=== PATIENT | male | born 1945 | race Native Hawaiian/Other Pacific Islander ===

== ENCOUNTER 2017-01-10 17:33 | Observation (INO) | payer OTHER ==
[~2017-01-10] VITALS: Ht 182.9 cm; Wt 110.7 kg
[~2017-01-10 17:33] MED LIST: ALBUTERO2 IN; ALPR0.2566 PO; ALPR0.5T24 PO; AMOX500C85; AMOX500C85 PO; ANORO ELLIPTA 61 AER IN; CEFTIN500 MG OR; CELEXA20 MG PO; CLOP75TA2 PO; CYCL10TA35 PO; DICY20TA34 PO; FLOXIN OT; FLUTMIS6 INH; GABA300C2 PO; LEVAQUIN750 MG OR; LIPITOR20 MG PO; LODRANE D1 CAP PO; MEDROL DOSEPAK4 MG OR; MELOXICAM7.5 MG OR; METO25TA4 PO; OMEPRAZOLE40 MG PO; ORAPRED ODT10 MG OR; PRED10TA27 PO; PRIM50TA4 PO; ROPINIROLE0.25 MG PO; SINGULAIR10 MG PO; WELLBUTRIN75 MG PO; ZANTAC300 MG PO; ZESTRIL40 MG PO
[2017-01-10 17:40] VITALS: BP 132/80; TEMP 99.3
[2017-01-10] MEDS ORDERED: ASPIRIN 81 LOW81 MG PO (17:55)
[2017-01-10] MEDS ORDERED: NITR0.4S2 SL (17:56)
[2017-01-10] MEDS ORDERED: LIPITOR20 MG PO (17:57)
[2017-01-10] MEDS ORDERED: CYCL10TA35 PO (17:58)
[2017-01-10 18:51] LABS: PLATELET COUNT 187 K/uL (142-355)
[2017-01-10 19:01] LABS: POTASSIUM 3.9 mmol/L (3.6-5.2)
[2017-01-11 00:17] VITALS: BP 126/72; TEMP 98.4
[2017-01-11 01:33] VITALS: BP 126/72; TEMP 98.6; Ht 182.9 cm; Wt 110.7 kg
[2017-01-11 04:00] VITALS: BP 110/70; TEMP 98.2
[2017-01-11 07:51] VITALS: BP 102/66; TEMP 98.3
--- NOTE | 2017-01-11 10:30 | NUR ---
DR. MAYO HERE TO VISIT WITH NEW ORDER. Pt. TO HAVE SURGERY TODAY.
[2017-01-11 11:31] LABS: PLATELET COUNT 163 K/uL (142-355)
[2017-01-11 11:50] LABS: POTASSIUM 3.5 mmol/L (3.6-5.2)
--- NOTE | 2017-01-11 11:57 | NUR ---
OLEG BACON REQUEST TO GET RECORDS FROM DR. DUNN DUE TO RESENT STENT PLACEMENT. FAXED REQUEST.
[2017-01-11 12:00] VITALS: BP 121/62; TEMP 98.1
--- NOTE | 2017-01-11 13:20 | NUR ---
RECEIVED ORDERS TO TRANSFER Pt. TO [facility] FOR SERVICES DR. VIDAL CUEVAS.
--- NOTE | 2017-01-11 15:17 | NUR ---
CLARIBEL CALLED WITH ROOM ASSIGNMENT 406 AND NUMBER TO CALL REPORT.
--- NOTE | 2017-01-11 15:41 | NUR ---
CALLED REPORT TO LAURA FABIAN RN.
[2017-01-11 16:00] VITALS: BP 139/89; TEMP 99.4
--- NOTE | 2017-01-11 17:30 | NUR ---
[facility] IS HERE. Pt. EXIT VIA STRETCHER.
== END 2017-01-11 17:30 | disposition home or self-care (01) ==
LOC: ED 17:33 → MED/SURG 22:15
PROVIDERS: Student in an Organized Health Care Education/Training Program
DX: R10.84 Generalized abdominal pain (principal); K21.9 Gastro-esophageal reflux disease without esophagitis; J44.9 Chronic obstructive pulmonary disease, unspecified; K81.9 Cholecystitis, unspecified; R22.2 Localized swelling, mass and lump, trunk
CPT/HCPCS: 80053; 82150; 83605; 83690; 85027; 96361; 96365; 96366; 96375; 99220; 99284; G0378; J1170; J1885; J2543; J3490; Q9963

== ENCOUNTER 2017-07-17 10:26 | Observation (INO) | payer OTHER ==
[2017-07-17] VITALS (7 sets, daily range): BP systolic 129–172; BP diastolic 86–112; TEMP 98.1–98.6; Ht 182.9 cm; Wt 107.0 kg
[~2017-07-17] VITALS: Ht 182.9 cm; Wt 107.0 kg
[~2017-07-17 10:26] MED LIST changes: +ASPIRIN 81 LOW81 MG PO; +NITR0.4S2 SL
[2017-07-17 10:57] LABS: PLATELET COUNT 227 K/uL (142-355)
[2017-07-17 11:06] LABS: POTASSIUM 4.6 mmol/L (3.6-5.2); SODIUM 138 mmol/L (136-145)
[2017-07-17 11:23] LABS: PARTIAL THROMBOPLASTIN TIME 25.4 SECONDS (24.5-33.6)
[2017-07-17] MEDS ORDERED: CELEXA20 MG PO (16:52)
[2017-07-17] MEDS ORDERED: XANAX XR1 MG PO (16:53)
[2017-07-17] MEDS ORDERED: XANAX XR2 MG PO (16:59)
[2017-07-18] VITALS: BP 113/71; TEMP 97.9
[2017-07-18 02:11] LABS: PLATELET COUNT 216 K/uL (142-355)
[2017-07-18 02:55] LABS: POTASSIUM 3.8 mmol/L (3.6-5.2); SODIUM 136 mmol/L (136-145)
[2017-07-18 04:00] VITALS: BP 103/57; TEMP 98.3
[2017-07-18 08:00] VITALS: BP 143/87; TEMP 98.5
== END 2017-07-18 12:08 | disposition home or self-care (01) ==
LOC: ED 10:26 → MED/SURG 13:20
PROVIDERS: ADMIT Emergency Medicine
DX: R07.89 Other chest pain (principal); I10 Essential (primary) hypertension; I25.10 Atherosclerotic heart disease of native coronary artery without angina pectoris; J44.9 Chronic obstructive pulmonary disease, unspecified
CPT/HCPCS: 36415; 80053; 82550; 83735; 84484; 85027; 85379; 85610; 85730; 93005; 94760; 96374; 99220; 99284; G0378; J2270

== ENCOUNTER 2018-01-20 09:00 | Outpatient (CLI) | payer OTHER ==
[~2018-01-20 09:00] MED LIST changes: +XANAX XR1 MG PO; +XANAX XR2 MG PO
[2018-01-20 09:35] LABS: POTASSIUM 3.7 mmol/L (3.6-5.2)
== END 2018-01-20 21:43 | disposition home or self-care (01) ==
LOC: LABW 09:00
PROVIDERS: Internal Medicine Cardiovascular Disease
DX: E78.4 Other hyperlipidemia (principal); Z79.899 Other long term (current) drug therapy; Z51.81 Encounter for therapeutic drug level monitoring
CPT/HCPCS: 36415; 80048; 80061; 83735

== ENCOUNTER 2018-09-24 19:38 | Emergency (ER) | payer OTHER ==
[~2018-09-24] VITALS: Ht 182.9 cm; Wt 109.8 kg
[2018-09-24 20:40] LABS: PLATELET COUNT 174 K/uL (142-355)
[2018-09-24 20:51] LABS: POTASSIUM 3.1 mmol/L (3.6-5.2)
[2018-09-24 21:54] VITALS: BP 120/87; TEMP 98.4
== END 2018-09-24 21:55 | disposition home or self-care (01) ==
LOC: ED 19:38
DX: J44.1 Chronic obstructive pulmonary disease with (acute) exacerbation (principal)
CPT/HCPCS: 36415; 36600; 80053; 81000; 82805; 85027; 94664; 96374; 99284; J2930

== ENCOUNTER 2019-07-30 16:08 | Outpatient (CLI) | payer OTHER ==
[~2019-07-30 16:08] MED LIST changes: +CELEBREX100 MG PO; +CETIRIZINE10 MG PO; +CLON0.5T36 PO; +ESCI10TA PO; +HYDR25TA60 PO; +LIPOFEN50 MG PO; +PROAIR HFA108 MCG/AC INH; +TRAMADOL HYDROC50 MG PO; +TRAZ50TA36 PO; +VITAMIN D50000 UNIT PO
== END 2019-07-30 16:10 | disposition short-term general hospital (02) ==
LOC: AMB 16:08
DX: R07.89 Other chest pain (principal)
CPT/HCPCS: A0425; A0427

== ENCOUNTER 2019-07-30 16:12 | Observation (INO) | payer OTHER ==
[2019-07-30] VITALS (10 sets, daily range): BP systolic 118–142; BP diastolic 61–88; TEMP 98.3–98.6; Ht 182.9 cm; Wt 107.6 kg
[~2019-07-30] VITALS: Ht 182.9 cm; Wt 107.6 kg
[2019-07-30 16:44] LABS: PLATELET COUNT 238 K/uL (142-355)
[2019-07-30 17:07] LABS: POTASSIUM 3.9 mmol/L (3.6-5.2); SODIUM 141 mmol/L (136-145)
[2019-07-30 17:13] LABS: PARTIAL THROMBOPLASTIN TIME 24.1 SECONDS (24.5-33.6)
--- NOTE | 2019-07-30 23:23 | NUR ---
07/30/192004: RECEIVED PT TO ROOM 1110. PT ARRIVED BY WHEELCHAIR FROM ER. PT ADMITTED WITH CHEST PAIN BUT DENIES AT THIS TIME. PT ALERT AND ORIENTED.
[2019-07-31] VITALS: BP 118/72; TEMP 97.6
[2019-07-31 04:00] VITALS: BP 103/62; TEMP 97.7
[2019-07-31 08:00] VITALS: BP 115/77; TEMP 98
--- NOTE | 2019-07-31 09:15 | NUR ---
@0915 C/O CHEST AND SHOULDER PAIN PRS=6, MEDICATED WITH MORPHINE 2MG IV @0945 @1045 DR DUNN IN TO SEE PT, ORDERS RECIEVED TO TRANSFER TO HIS CARE AT [facility] IN [place]. FAN FROM TRANSFER CENTER CALLED @1115 AND STATED SHE WOULD CALL US BACK WITH A ROOM ASSIGNMENT. @1345 FAN CALLED WITH ROOM ASSIGNMENT, FACE SHEET, H&P, LABS FAXED. @1400 PT C/O CHEST PAIN AND SHORTNESS OF BREATH WHEN RAISED HOB, AND STATED SOB LAST TIME HE GOT UP TO URINATE. PAIN PRS WAS 4 BEFORE SITTING UP, 6 AFTER SITTING UP. MEDICATED WITH MORPHINE 2MG IV @1415, VITAL SIGNS TAKEN. @1430 PAIN WAS COMPLETELY RELIEVED, NO SOB, NO DIZZINESS NOTED. @1430 CALLED REPORT TO RHONDA LOPEZ RN AT [facility]. @1435 ADÁN WEEKS FROM EMS CALLED AND STATED THAT WOULD BE HERE FOR THE PATIENT AROUND 1600. @1650 ARRIVED TO TRANSPORT PATIENT BY STRETCHER, PT HAD DUFFLE BAG WITH CLOTHING IN IT THAT WENT ALONG WITH PATIENT. @1655 PT LEFT HOSPITAL WITH , TELEMETRY WAS REMOVED, IV LEFT INTACT FOR TRAVEL
--- NOTE | 2019-07-31 10:44 | NUR ---
DR DUNN WAS REQUESTED TO CONSULT ON THIS PATIENT. PATIENT HAS A HISTORY OF CAD WITH STENT PLACEMENT. IS TRANSFERING PATIENT TO [place] FOR CONTINUED CARE AND CARDIOLOGY SERVICES. PATIENT WILL HAVE A HEART CATH, WHICH IS NOT AVAILABLE AT THIS FACILTY.
[2019-07-31 12:00] VITALS: BP 121/75; TEMP 97.9
== END 2019-07-31 18:19 | disposition short-term general hospital (02) ==
LOC: ED 16:12 → MED/SURG 19:05
PROVIDERS: ADMIT Family Medicine
DX: R07.89 Other chest pain (principal); I25.10 Atherosclerotic heart disease of native coronary artery without angina pectoris; E78.00 Pure hypercholesterolemia, unspecified; I10 Essential (primary) hypertension; F32.89 Other specified depressive episodes; Z72.0 Tobacco use; J44.9 Chronic obstructive pulmonary disease, unspecified
CPT/HCPCS: 80053; 81000; 82550; 82553; 84484; 85027; 85379; 85610; 85730; 93005; 94760; 96372; 96374; 99220; 99284; G0378; J1650; J2270; J2405

== ENCOUNTER 2019-09-16 10:25 | Inpatient (IN) | payer OTHER ==
[~2019-09-16] VITALS: Ht 182.9 cm; Wt 115.0 kg
[2019-09-16 13:27] LABS: PLATELET COUNT 208 K/uL (142-355)
[2019-09-16 13:41] LABS: POTASSIUM 3.4 mmol/L (3.6-5.2)
[2019-09-16 13:49] VITALS: BP 110/72; TEMP 98.2; Ht 182.9 cm; Wt 115.0 kg
[2019-09-16] MEDS ORDERED: ESCITALOPRAM10 MG PO (15:25)
[2019-09-16] MEDS ORDERED: CYCLOBENZAPRINE10 MG PO (15:25)
[2019-09-16] MEDS ORDERED: METOPROLOL TA37.5 MG PO (15:40)
[2019-09-16] MEDS ORDERED: NITROGLYCER0.1 MG/H1 TD (15:42)
[2019-09-16 16:00] VITALS: BP 104/62; TEMP 98
[2019-09-16] MEDS ORDERED: ASPIR-8181 MG PO (18:17)
[2019-09-16 20:00] VITALS: BP 117/75; TEMP 98.6
[2019-09-17] VITALS: BP 113/69; TEMP 98.6
[2019-09-17 04:00] VITALS: BP 115/71; TEMP 98.2
[2019-09-17 06:11] LABS: PLATELET COUNT 203 K/uL (142-355)
[2019-09-17 06:43] LABS: POTASSIUM 3.9 mmol/L (3.6-5.2)
[2019-09-17 08:00] VITALS: BP 138/73; TEMP 97.6
[2019-09-17 12:00] VITALS: BP 102/71; TEMP 98.2
[2019-09-17 16:00] VITALS: BP 94/67; TEMP 98.6
[2019-09-17 20:00] VITALS: BP 102/74; TEMP 98.6
[2019-09-18] VITALS: BP 104/63; TEMP 97.7
[2019-09-18 04:00] VITALS: BP 125/68; TEMP 97.7
[2019-09-18 08:09] VITALS: BP 108/71; TEMP 97.7
[2019-09-18 12:09] VITALS: BP 125/77; TEMP 97.6
[2019-09-18 16:17] VITALS: BP 116/78; TEMP 97.8
[2019-09-18 20:00] VITALS: BP 104/73; TEMP 98.3
[2019-09-19] VITALS: BP 97/35; TEMP 98.2
[2019-09-19 04:00] VITALS: BP 103/73; TEMP 97.7
[2019-09-19 06:09] LABS: PLATELET COUNT 197 K/uL (142-355)
[2019-09-19 08:00] VITALS: BP 125/80; TEMP 97.5
== END 2019-09-19 15:23 | disposition home or self-care (01) | DRG 191 ==
LOC: MED/SURG 10:25
PROVIDERS: Family Medicine; ADMIT Internal Medicine
DX: J44.1 Chronic obstructive pulmonary disease with (acute) exacerbation (principal); N20.1 Calculus of ureter; E87.6 Hypokalemia; I25.10 Atherosclerotic heart disease of native coronary artery without angina pectoris; E78.49 Other hyperlipidemia; R09.02 Hypoxemia; I10 Essential (primary) hypertension; F32.89 Other specified depressive episodes; E55.9 Vitamin D deficiency, unspecified; J32.8 Other chronic sinusitis
CPT/HCPCS: 36415; 36600; 80053; 82805; 82948; 85027; 94640; 94664; 94760; 96360; 96367; 96375; J0692; J1650; J1815; J2930

== ENCOUNTER 2020-06-18 13:05 | Outpatient (CLI) | payer OTHER ==
[~2020-06-18 13:05] MED LIST changes: +ASPIR-8181 MG PO; +CYCLOBENZAPRINE10 MG PO; +ESCITALOPRAM10 MG PO; +METOPROLOL TA37.5 MG PO; +NITROGLYCER0.1 MG/H1 TD
== END 2020-06-18 23:39 | disposition home or self-care (01) ==
LOC: LABW 13:05
DX: M86.8X8 Other osteomyelitis, other site (principal)
CPT/HCPCS: 36415; 85651

== ENCOUNTER 2020-08-19 10:03 | Outpatient (CLI) | payer OTHER ==
[2020-08-19 10:21] LABS: PLATELET COUNT 174 K/uL (142-355)
== END 2020-08-19 23:58 | disposition home or self-care (01) ==
LOC: LABW 10:03
PROVIDERS: ATTEND Internal Medicine Cardiovascular Disease
DX: R53.81 Other malaise (principal); R53.83 Other fatigue; R52 Pain, unspecified
CPT/HCPCS: 36415; 85027; 85651

== ENCOUNTER 2020-09-02 09:21 | Outpatient (CLI) | payer OTHER ==
[2020-09-02 09:50] LABS: POTASSIUM 4.3 mmol/L (3.6-5.2)
== END 2020-09-02 21:05 | disposition home or self-care (01) ==
LOC: LABW 09:21
PROVIDERS: ATTEND Internal Medicine Cardiovascular Disease
DX: R06.09 Other forms of dyspnea (principal); Z79.899 Other long term (current) drug therapy
CPT/HCPCS: 36415; 80048; 83880

== ENCOUNTER 2021-05-07 13:35 | Emergency (ER) | payer OTHER ==
[~2021-05-07] VITALS: Ht 182.9 cm; Wt 120.2 kg
[2021-05-07 15:06] LABS: POTASSIUM 4.4 mmol/L (3.6-5.2); SODIUM 141 mmol/L (136-145)
[2021-05-07 15:10] LABS: PLATELET COUNT 187 K/uL (142-355)
[2021-05-07 15:17] LABS: PARTIAL THROMBOPLASTIN TIME 27.4 SECONDS (24.5-33.6)
[2021-05-07 20:45] VITALS: BP 114/71; TEMP 98
== END 2021-05-07 21:45 | disposition home or self-care (01) ==
LOC: ED 13:35
PROVIDERS: Emergency Medicine
DX: U07.1 COVID-19 (principal); J44.1 Chronic obstructive pulmonary disease with (acute) exacerbation
CPT/HCPCS: 80053; 83880; 84484; 85027; 85379; 85610; 85730; 93005; 96374; 96375; 99284; J1885; J2920; Q9963

== ENCOUNTER 2021-05-16 14:57 | Inpatient (IN) | payer OTHER ==
[~2021-05-16] VITALS: Ht 182.9 cm; Wt 109.9 kg
[2021-05-16] VITALS (9 sets, daily range): BP systolic 104–147; BP diastolic 66–98; TEMP 98.2–98.9; Ht 182.9 cm; Wt 109.9 kg
[2021-05-16 15:25] LABS: PLATELET COUNT 229 K/uL (142-355)
[2021-05-16 15:31] LABS: POTASSIUM 4.1 mmol/L (3.6-5.2); SODIUM 141 mmol/L (136-145)
[2021-05-16 15:39] LABS: PARTIAL THROMBOPLASTIN TIME 24.5 SECONDS (24.5-33.6)
--- NOTE | 2021-05-16 19:18 | NUR ---
SPOKE WITH PT REGARDING INTUBATION IF NEEDED, I ASKED PT IF HIS OXYGEN GOT TO LOW WOULD HE WANT TO BE PUT ON THE VENTILATOR PT STATES "YES I DO," WHEN ASKED IF HE WOULD LIKE CPR DONE INCASE OF CARDIAC ARREST PT WAS UNABLE TO ANSWER AT THIS TIME HE SAID HE WANTED TO THINK ABOUT IT
[2021-05-17] VITALS: BP 92/59; TEMP 97.8
[2021-05-17 04:00] VITALS: BP 113/79; TEMP 98.5
[2021-05-17 08:00] VITALS: BP 102/74; TEMP 97.9
[2021-05-17 12:00] VITALS: BP 100/53; TEMP 97.9
--- NOTE | 2021-05-17 15:35 | NUR ---
PT LYING ON RIGHT SIDE RESTING SPO2 IS 92%. WILL CONTINUE TO MONITOR.
[2021-05-17 16:00] VITALS: BP 107/56; TEMP 97.8
--- NOTE | 2021-05-17 17:50 | NUR ---
1715 PT SPO2 DROPPING INTO MID 80s, went to room check on him. he was semi vazquez and talking to me. I increased in fio2 to 90% his spo2 went up to low 90s. willcontinue to monitor.
--- NOTE | 2021-05-17 18:23 | NUR ---
PT FIO2 INCREASED TO 100% HE IS 60LNC. ALSO GVE HIM HIS COMBIVENT INHALER. TOLERATEAD WELL.
--- NOTE | 2021-05-17 19:41 | NUR ---
RT CALLED TO PCU. PT SPO2 AT 79-80% ON HFNC AT 60LPM 100% FIO2. RT PLACED PT ON BIPAP AT 14/8 80% RR-20. PT IS YUE WELL. SPO2 AT 93%, HR 62. RR-30. WILL CONTINUE TO MONITOR.
--- NOTE | 2021-05-17 20:30 | NUR ---
CALLED DAUGHTER CELL PHONE TO LET HER KNOW ABOUT GETTING INTUBATED. CALLED SEVERAL TIMES WITH NO CONTACT. WILL REATTEMPT TO NOTIFY NEXT OF KIN. TALKING TO PATIENT AND HE IS AWARE AND CONSENTS TO BEING INTUBATED.
--- NOTE | 2021-05-17 21:13 | NUR ---
2049-PT INTUBATED BY DR. MAYO WITH 7.5 ETT AT 25CM AT THE LIP. COLOR CHANGE AND BBS HEARD.PT PLACED ON VENT WITH AC 600, X20,+10, 100%. HR-68, SPO2-93%. VE-12.1, PIP-31.1
--- NOTE | 2021-05-17 22:14 | NUR ---
SPO2 AT 98-99%. DECREASED FIO2 TO 90%. SPO2 NOW AT 96-97%. WILL CONTINUE TO MONITOR.
--- NOTE | 2021-05-17 22:26 | NUR ---
ET TUBED PULLED BACK TO 24CM AT THE LIP PER DR MAYO POST CXR.
--- NOTE | 2021-05-17 23:19 | NUR ---
SP2 AT 96% ON 90% FIO2. DECREASED FIO2 TO 80%. SPO2 AT 96%
[2021-05-18] VITALS (12 sets, daily range): BP systolic 85–106; BP diastolic 54–70; TEMP 96.6–97.3
--- NOTE | 2021-05-18 02:30 | NUR ---
LATE ENTRY: 05/18/211929 PATIENT CAME TO UNIT ON A VENTI MASK AND THEN WAS TRANFERED TO BIPAP 08/05 RESP BY RESPIRATORY THEN ADJUSTED FURTHER BY RESPIRATORY. AT [address] MAYO CAME IN TO ASSESS THE PATIENT FOR A CENTRAL LINE AND POSSIABLE INTUBATION. DR ALBA DICKINSON DR
--- NOTE | 2021-05-18 02:50 | NUR ---
AND DR MAYO AGREED TO INTUBATE THE PATIENT. PATIENT VERBALLY AGREEDED TO BE INTUBATED. RSI MEDICATIONS WERE PREPARED. AT 2049 INTUBATION PROCESS WAS BEGAN. 2MG OF VERSAD, 150MG OF PROPFOL, AND SUCCS 200MG WAS GIVEN, DR MAYO INTUBATED WITH A 7.5 ET TUBE WITH 25 AT THE LIP AND A POSITIVE CO2 RESPONSE. ET TUBE WAS SECURE BY RESPIRATORY. DR MAYO ORDERED A ONE TIME PROPRFOL DRIP TO BE TITRATED BY PROTOCOL. DR MAYO ALSO SECURED A TRIPPLE LUMEN SUBCLAVIAN CENTRAL LINE THEN A 16F NOSOGASTRIC TUBE TO THE LEFT NARE.
--- NOTE | 2021-05-18 03:06 | NUR ---
STAT CHEST X-RAY WAS ORDERED AND PLACEMENT VERIFIED OF THE ET TUBE, NASOPHARENGEAL TUBE , AND CENTRAL LINE ALL VERIFIED AND IN CORRECT PLACEMENT. VENT SETTING ARE TITAL VOLUME 600, PEEP 10, 20 BPM, 70% FIO2. PATIENT IS ASSIST CONTROL. DR WILLIS DISCONTINUED THE PROPOFOL DRIP AND STARTED A FENTENYL AND VERSAD RIP PER PROTOCOL
--- NOTE | 2021-05-18 03:29 | NUR ---
DECREASED FIO2 TO 70%. SPO2 AT 97%.
--- NOTE | 2021-05-18 03:34 | NUR ---
PATIENT RECIEVED A 18F MOSELEY CATHITHER ON 05/17/21. PATIENT IS RESTING COMFORTABLY NO SIGNS OF OVER SEDATION OR AGGITATION.
--- NOTE | 2021-05-18 03:45 | NUR ---
PATIENT ABDOMINAL FOLDS WERE CLEANED AND NYDTATIN POWER APPLIED.
--- NOTE | 2021-05-18 03:49 | NUR ---
PATIENT WAS ALSO GIVEN 2 NORMAL SALINE BOLUS' TO MAINTAIN BLOOD PRESSURE AND SEDATION DRIPS WERE TITRATED
--- NOTE | 2021-05-18 07:30 | NUR ---
PT RESTING QUIETLY WITH EYES CLOSED . SEDATED ON VERSED DRIP AT10MG/ HR FENTANYL DRIP [id number].MOSELEY TO BSD WITH CLEAR MED YELLOW URINE.
--- NOTE | 2021-05-18 10:20 | NUR ---
DR WILLIS & DR CALLEJAS IN TO SEE PT.
[2021-05-18 10:32] LABS: PLATELET COUNT 209 K/uL (142-355)
[2021-05-18 10:43] LABS: POTASSIUM 4.4 mmol/L (3.6-5.2)
--- NOTE | 2021-05-18 11:30 | NUR ---
REPORTED HOLDING PO MEDS TO DR WILLIS. WILL CHANGE & ADJUST MEDS.
--- NOTE | 2021-05-18 12:47 | NUR ---
SON CALLED TO CK ON PT. PASSWORD SET UP.
--- NOTE | 2021-05-18 13:56 | NUR ---
BP 88/61. FENTANYL DECREASED TO 2ML/HR. VERSED DECREASED TO 7MG/HR
--- NOTE | 2021-05-18 16:15 | NUR ---
BATH & PERSONAL CARE, LINEN CHANGE. PT GETS ANXIOUS & TRIES TO MOVE ARMS, NOTED SHAKING OF ARMS & FEET,CALMS WHEN STIMULI DECREASED. REPOTED TO DR WILLIS.
--- NOTE | 2021-05-18 17:45 | NUR ---
PT WITH BP DECREASE. FENTANYL DECREASED TO 1 ML/HR. VERSED DRIP DECREASED TO 6ML/HR. PT RESTING WITH EYES CLOSED.
[2021-05-19] VITALS (22 sets, daily range): BP systolic 84–155; BP diastolic 52–83; TEMP 97.4–100.5
--- NOTE | 2021-05-19 01:37 | NUR ---
PATIENT SYSTOLIC IS STAYING 90-85. THE ER MD WAS NOTIFIED AND HE ORDERED A 500ML BOLIS NOW THEN MOVE THE FLUIDS UP TO 100 MLS AN HOUR
--- NOTE | 2021-05-19 01:38 | NUR ---
MARTHA ENTRY: DR MONTES DE OCA GAVE THE VERBAL ORDER IF PATIENTS BLOOD PRESSURE DID NOT IMPROVE. ONE TIME DOSE OF ALBUMIN 25% WAS GIVEN
--- NOTE | 2021-05-19 03:12 | NUR ---
PATIENT HAS BEEN TRENELENBRURGED TO ATTEMPT TO IMPROVE BLOOD PRESSURE.
--- NOTE | 2021-05-19 03:32 | NUR ---
POST 500 ML NS BOLUS PER ER PHYSICIAN PATIENTS BLOOD PRESSURE REMAINS 83/50 WITH ANIA 61, HR-68, SPO2 95% AND RR-17. NOTIFIED PHYSICIAN AND NEW ORDERS WERE GIVEN TO STOP FENTANYL AND MONITOR CLOSELY. STANDING ORDER GIVEN IF PATIENT STARTS WAKING UP TO PLACE PATIENT ON VECURONEIUM. FENTANYL STOPPED AT THIS TIME.
[2021-05-19 05:51] LABS: PLATELET COUNT 205 K/uL (142-355)
[2021-05-19 06:04] LABS: POTASSIUM 4.2 mmol/L (3.6-5.2)
--- NOTE | 2021-05-19 08:39 | NUR ---
SPO2 AT 97% ON 70% FIO2. RT DECREASED FIO2 TO 60%. SPO2 STILL AT 97%.
--- NOTE | 2021-05-19 09:00 | NUR ---
PT'S BP NOTED TO BE 95/57 MAP 80. HR 71. NOTIFIED. NEW ORDER REC'D TO START PT ON LEVOPHED DRIP PER PROTOCOL.
--- NOTE | 2021-05-19 12:32 | NUR ---
DECREASED PEEP TO 8. SPO2 AT 94%.
--- NOTE | 2021-05-19 15:23 | NUR ---
ET TUBE MOVED TO LEFT SIDE OF MOUTH.
--- NOTE | 2021-05-19 19:50 | NUR ---
PT RESTING IN LOW FOWLERS WITH HIS EYES CLOSED. DRIPS INFUSING. PT IS ON VENT WITH EVEN AND UNLABORED RESPIRATIONS. NAD NOTED. WILL CONTINUE TO MONITOR.
--- NOTE | 2021-05-19 22:30 | NUR ---
NO CHANGE IN PT'S CONDITION. PT IS RESTING PEACEFULLY AT THIS TIME WITH DRIPS INFUSING. BED IS LOCKED AND LOW WITH CALL GONZALEZ IN REACH. NOTED.
[2021-05-20] VITALS (14 sets, daily range): BP systolic 97–138; BP diastolic 56–79; TEMP 97.9
--- NOTE | 2021-05-20 00:45 | NUR ---
MOUTH CARE PROVIDED AT THIS TIME. LIPS AND MOUTH MOISTURIZED. NO SIGNS AND SYMPTOMS OF DISTRESS AT THIS TIME. WILL CONTINUE TO MONITOR.
--- NOTE | 2021-05-20 03:00 | NUR ---
PT REMAINS ON VENT. NO SIGNS AND SYMPTOMS OF DISTRESS OR PAIN AT THIS TIME. BED LOCKED AND LOW WITH SIDE RAILS UP X 2. WILL CONTINUE TO MONITOR.
--- NOTE | 2021-05-20 03:20 | NUR ---
DECREASED LEVOPHED DRIP TO 6MCG AT THIS TIME, WILL MONITOR VITALS CLOSELY.
--- NOTE | 2021-05-20 05:45 | NUR ---
INCREASED LEVOPHED DRIP BACK TO 8MCG DUE TO B/P 89/65. WILL MONITOR CLOSELY.
--- NOTE | 2021-05-20 06:00 | NUR ---
PT REPOSITIONED ON RIGHT SIDE WITH HANDS AND FEET ELEVATED. NAD NOTED.
[2021-05-20 07:48] LABS: PLATELET COUNT 248 K/uL (142-355)
--- NOTE | 2021-05-20 08:22 | NUR ---
ET TUBE MOVED TO RIGHT SIDE OF PT MOUTH.
--- NOTE | 2021-05-20 09:03 | NUR ---
REPORTED CRITICAL WBC COUNT TO DR CARRION OF 26.6 NO NEW ORDERS REC/D
--- NOTE | 2021-05-20 09:48 | NUR ---
NOTIFIED PER RESP PT NOTED TO BE LABORED AT THIS ITME. PT MAXED OUT ON CURRENT SEDATION. ATTMEPTD TO NOTIFIED DR CARRION TO ASK IF WE COULD ADD VEC TO ACHEIVE CONTROL OF RESP AND IMPROVE RESP AT THIS TIME.
--- NOTE | 2021-05-20 09:59 | NUR ---
PT USING ACCESSORY MUSCLES TO BREATH OVER THE VENT. SPO2 AT 91%. RT AND BELINDA DANIELN RERPOSTIONED PT. SPO2 AT 94%. BBS ARE TIGHT AND IE WHEEZE. RT CHANGED PT TO SIMV TO ACCLUMATE BREATHES TO PT SPONTANEOUS BREATHES.
--- NOTE | 2021-05-20 10:01 | NUR ---
SPOKE WITH DR CARRION CONCERNING THE NEED TO DECREASE LABORED BREATHING AND ASKED TO START VEC. ORDERS REC'D TO START VEC PER PROTOCOL AT THISTIME.
--- NOTE | 2021-05-20 12:49 | NUR ---
PT NOTED TO HAVE LABORED BREATHING AT THIS TIME. TRAIN OF 4 CHECKED 4 OUT 4 TWITCHES NOTED. PT'S BASELINE IS 15MILAMPS. INCREASED VEC TO 0.10MCG. IVF'S NOTED TO BE INFUSING AT 100M/HR IVF'S DECREASED TO 50ML/HR. LEVOPHED DECREASED TO 5MCG. BP 108/67 WITH MAP 78. WILL CONT TO MONITOR.
--- NOTE | 2021-05-20 13:49 | NUR ---
PT IS STILL USING ACCESORY MUSCLES TO BREATH OVER THE VENT. RT CHANGED PT TO SIMC-PC 25. PT TOLERTING A LITTLE BETTER. WILL CONTINUE TO MONITOR.
--- NOTE | 2021-05-20 14:02 | NUR ---
LEVOPHED STOPPED AT THIS TIME. BP 96/67 MAP 76
--- NOTE | 2021-05-20 22:30 | NUR ---
RESTING WITH EYES CLOSED, NO S/S OF PAIN OR DISTRESS NOTED, RESP RATE NONLABORED, ON VENT, VITALS BEING MONITORED, REPOSITIONED IN BED.
--- NOTE | 2021-05-21 01:05 | NUR ---
INCREASED LEVOPHED DRIP TO 4MCG/MIN DUE TO LOW B/P OF 88/65. WILL MONITOR CLOSELY. RESTING WITH EYES CLOSED, NO S/S OF DISTRESS NOTED, REMAINS ON VENT, VITALS BEING MONITORED, WILL MONITOR CLOSELY RAILS UP, BED INLOW POSITION, FEET AND HANDS ELEVATED ON PILLOWS.
--- NOTE | 2021-05-21 03:45 | NUR ---
PT RESTING WITH EYES CLOSED, NO S/S OF PAIN OR DISTRESS NOTED, RESP RATE NONLABORED ON VENT, VITALS BEING MONITORED CLOSELY. IV INTACT TO R HAND AND CENTAL LINE INTACT R SUBCLAVIN WITH VECURONIUM VERSED AND LEVOPHED DRIPS ONGOING, NG TO L NARE, MOSELEY PATENT. MOUTH CARE PROVIDED AND LIPS MOISTURIZED, REPOSITIONED TO R SIDE, WILL MONITOR, FEET ELEVATED ON PILLOW.
--- NOTE | 2021-05-21 05:30 | NUR ---
PT HAS 101.2 AXILLARY TEMP, CALLED ER TO SPEAK TO ER DR BUT DR IS IN A ROOM, BONE GRINDER WILL CALL BACK.
--- NOTE | 2021-05-21 06:50 | NUR ---
NEW ORDER FROM DR. COE IN ER FOR TYLENOL 650MG PER RECTUM Q 4 HOURS PRN FEVER. T.O. R&V DR. COE/APOORVA CARVAJAL RN.
[2021-05-21 08:32] LABS: PLATELET COUNT 214 K/uL (142-355)
--- NOTE | 2021-05-21 12:11 | NUR ---
PT SPO2 AT 88-89% ON 60% FIO2. RT INCREASED FIO2 TO 65%. SPO2 NOW AT 90-91%
[2021-05-22 06:01] LABS: PLATELET COUNT 207 K/uL (142-355)
[2021-05-22 06:25] LABS: POTASSIUM 3.8 mmol/L (3.6-5.2)
--- NOTE | 2021-05-22 08:20 | NUR ---
PATIENTS BLOOD PRESSUE CONTINNUED TO ELIVATED, LEVOPHED WAS TITRATED AND THEN WAS TURNED OFF.
--- NOTE | 2021-05-23 04:04 | NUR ---
PATIENT BLOOD SUGER CAME BACK GREATER THAN 550, ORDERED 15 U OF REGULAR INSULIN ONE TIME DOSE.
--- NOTE | 2021-05-23 05:56 | NUR ---
PATIENT RESTING COMFORTABLY ON THE VENT. NO SECREATIONS NOTED. PATIENT REPOSITIONED
[2021-05-23 05:58] LABS: PLATELET COUNT 198 K/uL (142-355)
[2021-05-23 06:01] LABS: POTASSIUM 4.4 mmol/L (3.6-5.2)
--- NOTE | 2021-05-23 08:57 | NUR ---
0900 INCREASED RR FROM [address] CARRION.
--- NOTE | 2021-05-23 19:00 | NUR ---
LATE ENTRIES: 0810 VEC INFUSING AT 20.7ML/HR WITHOUT DIFFICULTY [address] CARRION OF PATIENT'S INCREASED BLOOD PRESSURES. PER DR. CARRION'S VERBAL INSTRUCTIONS, FENTANYL RESUMED INFUSING @ 1ML/HR. 1403 VERSED INFUSION RATE DECREASED TO 7ML/HR. VEC INFUSION RATE DECREASED 15ML/HR 1459 VERSED INFUSION RATE DECREASED TO 5ML/HR AND VEC INFUSING RATE DECREASED TO 12.9ML/HR. PATIENT TOLERATING WELL
[2021-05-23 20:21] VITALS: BP 107/73; TEMP 98.3
[2021-05-23 21:14] LABS: POTASSIUM 4.3 mmol/L (3.6-5.2)
[2021-05-23 23:44] VITALS: BP 109/76; TEMP 101.8
--- NOTE | 2021-05-24 02:17 | NUR ---
LATE ENTRY: 05/23/21 PATIENTS TEMP IS 101.8, PATIENT WAS GIVEN IV TYNANOL AND ICE WAS PLACED.
--- NOTE | 2021-05-24 02:46 | NUR ---
PATIENT REPOSITIONED AND ICE REPOSITIONED, PATIENT TEMP IS 100.1
[2021-05-24 03:46] VITALS: BP 118/85; TEMP 100.8
[2021-05-24 05:45] LABS: PLATELET COUNT 207 K/uL (142-355)
[2021-05-24 06:07] LABS: POTASSIUM 4.3 mmol/L (3.6-5.2)
--- NOTE | 2021-05-24 07:08 | NUR ---
LATE ENTRY: COOLING BLANKET ON PATIENT. PATIENT TEMP IS 100.3. NEW ORDERS ON PATIENT. ANTIBIOTS CHANGED AND TORADOL ORDERS
--- NOTE | 2021-05-24 07:46 | NUR ---
PATIENT TEMP IS 99.1
--- NOTE | 2021-05-24 12:02 | NUR ---
DECREASED FIO2 TO 95%. SPO2 AT 93-92%
--- NOTE | 2021-05-24 14:01 | NUR ---
DECREASED FIO2 TO 90%. SPO2 AT 93%
--- NOTE | 2021-05-24 15:49 | NUR ---
DECREASED FIO2 TO 80%. SPO2 AT 94%
--- NOTE | 2021-05-24 19:04 | NUR ---
ZAROXLYN 5MG GIVEN VIA NGT PER MD ORDERS.
[2021-05-24 20:00] VITALS: TEMP 99.6
--- NOTE | 2021-05-24 23:30 | NUR ---
NO S/S OF DISTRESS NOTED REMAINS ON VENT, VITALS BEING MONITORED, MOSELEY PATENT, NG TUBE INTACT, CENTRAL LINE NORMAL AND DRIPS ONGOING, REPOSITIONED TO SIDE IN BED, FEET AND ARMS ELEVATED ON PILLOWS, WILL MONITOR CLOSELY.
[2021-05-25] VITALS: TEMP 100.5
--- NOTE | 2021-05-25 03:30 | NUR ---
NO S/S OF DISTRESS NOTED, VITALS BEING MONITORED, REMAINS ON VENT, NG TUBE AND MOSELEY INTACT, NO S/S OF ACUTE DISTRESS NOTED, CENTRAL LINE INTACT TO R CHEST WITH DRIPS ONGOING, VITALS BEING MONITORED. REPOSITIONED TO BACK FEET AND HANDS ELEVATED ON PILLOWS, WILL MONITOR CLOSELY, RAILS UP.
[2021-05-25 04:00] VITALS: TEMP 99.6
--- NOTE | 2021-05-25 05:50 | NUR ---
PT RESTING WITH EYES CLOSED WITH NO S/S OF DISTRESS NOTED, REMAINS ON VENT NG TUBE INTACT TO L NARE, CENTRAL LINE INTACT TO R CHEST WITH DRIPS ONGOING, 20G IV LOCK INTACT TO R HAND, VITALS BEING MONITORED, MOSELEY PATENT. MOUTH CARE COMPLETED, REPOSITIONED IN BED TO SIDE, FEET AND HANDS ELEVATED ON PILLOWS, WILL MONITOR, RAILS UP, BED IN LOW POSITION.
[2021-05-25 05:55] LABS: PLATELET COUNT 217 K/uL (142-355)
[2021-05-25 06:12] LABS: POTASSIUM 4.4 mmol/L (3.6-5.2)
--- NOTE | 2021-05-25 08:00 | NUR ---
PT NOTED TO HAVE A TEMP OF 104 AX. HR 130 AT THIS TIME. COOL RAGS PLACED ON PT'S FOREHEAD, ARMPITS AND GROIN. TYLENOL IV GIVEN PER MD ORDERS.
--- NOTE | 2021-05-25 08:20 | NUR ---
PT'S RECTAL PROBE REPLACED, PT TURNED TO LEFT SIDE. COOLING BLANKET PLACED ON PT. RECTAL PROBE READS 104 AT THIS TIME. NOTIFIED
--- NOTE | 2021-05-25 08:30 | NUR ---
PT'S TRAIN OF FOUR NOTED TO BE 4/4 TWITCHES ON 10 mA. PT'S VEC INCREASED FROM 0.1874 MCG/KG/MIN TO 0.21 MCG/KG/MIN BY GHULAM FREITAS RN. WILL CON'T TO MONITOR PT.
--- NOTE | 2021-05-25 11:00 | NUR ---
PT'S O2 SATS NOTED TO BE 87-88% AT THIS TIME. RESPIRATORY NOTIFIED.
--- NOTE | 2021-05-25 11:22 | NUR ---
PT'S TEMP NOTED TO BE 101.1 RECTAL AT THIS TIME.
--- NOTE | 2021-05-25 14:38 | NUR ---
FAMILY CALLED FOR UPDATE AND UPDATE GIVEN AT THIS TIME.
[2021-05-25 20:00] VITALS: TEMP 98.8
--- NOTE | 2021-05-25 20:03 | NUR ---
1316 PT'S TEMP DOWN TO 99.3 RECTAL COOLING BLANKET REMOVED AT THIS TIME. WILL CON'T TO MONITOR PT'S TEMP 1550 PT'S TEMP 99.8 AXILLARY
--- NOTE | 2021-05-25 21:30 | NUR ---
RESTING WITH EYES CLOSED, NO S/S OF PAIN OR DISTRESS NOTED, MOSELEY PATENT, CENTRAL LINE INTACT TO R SUBCLAV. VERSED, FENTANLY, VECURONIUM AND DD5 1/4 NS ONGOING, VITALS BEING MONITORED, NG TUBE INTACT TO L NARE. REPOSITIONED IN BED, MOUTH CARE COMPLETED. WILL MONITOR CLOSELY.
--- NOTE | 2021-05-25 22:30 | NUR ---
LARGE AMT OF ORAL SECRETIONS REMOVED VIA SUCTIONING.
[2021-05-26 00:01] VITALS: TEMP 98.6
[2021-05-26 04:00] VITALS: TEMP 97.3
--- NOTE | 2021-05-26 05:00 | NUR ---
RESTING WITH EYES CLOSED, REMAINS ON VENT, CENTRAL LINE INTACT, MOSELEY PATENT, NG INTACT. REPOSITIONED IN BED, HOB ELEVATE, WILL MONITOR, VITAALS BEING MONITORE.
[2021-05-26 05:23] LABS: PLATELET COUNT 202 K/uL (142-355)
[2021-05-26 05:44] LABS: POTASSIUM 4.1 mmol/L (3.6-5.2)
--- NOTE | 2021-05-26 20:18 | NUR ---
RESTING WITH EYES CLOSED, NO S/S OF ACUTE DISTRESS NOTED, PT ASSESSMENT COMPLETED, ON VENT, VITALS BEING MONITORED, MOSELEY PATENT, NG INTACT TO L NARE, HANDS AND FEET ELEVATED ON PILLOWS, CENTRAL LINE INTACT TO R SUBCL AND 20G IV LOCK INTACT TO R HAND. DRIPS ONGOING. WILL MONITOR CLOSELY, RAILS UP, BED I LOW POSITION.
--- NOTE | 2021-05-27 01:00 | NUR ---
PT RESTING WITH EYES CLOSED, NO S/S OF ACUTE DISTRESS NOTED, MOUTH SUCTIONED DUE TO SOME SECRETIONS. FACE WIPED WITH WARM CLOTH, MOUTH CARE COMPLETED, TAPE ON NG TUBE CHANGED AND NG TUBE SECURED WITH NEW TAPE(INTACT TO L NARE). HANDS AND FEET ELEVATED ON PILLOWS, RESP RATE NONLABORED, REMAINS ON VENT, VITALS BEING MONITORED, MOSELEY PATENT, CENTRAL LINE INTACT TO R SUBCLA AND 20G IV LOCK INTACT TO R HAND. VECURONIUM DRIP AT 13ML/HR, VERSED DRIP AT 4.5ML/HR, FENTANYL DRIP AT 1 ML/HR, D5 1/4 NS ONGOING. VITALS BEING MONITORED HOME ECONOMICS TEACHER IN USE. REPOSITIONED TO BACK AT THIS TIME, WILL MONITOR CLOSELY, RAILS UP.
--- NOTE | 2021-05-27 04:30 | NUR ---
RESTING WITH EYES CLOSED, NO S/S OF PAIN OR DISTRESS NOTED, REPOSITONED IN BED, CENTRAL LINE INTACT WITH DRIPS ONGOING, RESP RATE NONLABORED, REMAINS ON VENT, MOSELEY PATENT, NG TUBE INTACT TO L NARE, IV INTACT TO R HAND, HOB ELEVATED. WILL MONITOR, RAILS UP, BED IN LOW POSITION.
[2021-05-27 04:42] LABS: PLATELET COUNT 226 K/uL (142-355)
[2021-05-27 05:08] LABS: POTASSIUM 3.7 mmol/L (3.6-5.2)
[2021-05-27 08:00] VITALS: TEMP 98.5
--- NOTE | 2021-05-27 09:47 | NUR ---
DECREASED FI02 FROM 90% TO 80%. SAT RES 93%
[2021-05-27 12:00] VITALS: TEMP 98.9
[2021-05-27 16:00] VITALS: TEMP 99.3
--- NOTE | 2021-05-27 18:55 | NUR ---
VEC INFUSION RATE DECREASED TO 7ML/HR AND VERSED RATE DECREASED TO 2.5ML/HR.
--- NOTE | 2021-05-27 19:06 | NUR ---
DECREASED FIO2 FROM 80% TO 75% TO SEE IF TOLERATE. SATS 89-90% HR 98
[2021-05-28 05:54] LABS: PLATELET COUNT 233 K/uL (142-355)
[2021-05-28 06:45] LABS: POTASSIUM 4.1 mmol/L (3.6-5.2)
--- NOTE | 2021-05-28 12:36 | NUR ---
DECREASED FIO2 TO 65%. SPO2 AT 90%.
--- NOTE | 2021-05-28 15:00 | NUR ---
PT NOTED TO HAVE INCREASE RR OF 26 AT THIS TIME AND NOTED TO BE LABORED. RESP INFOMRED AND I WAS INFORMED THAT RESP COULDNT MAKE ANY MORE CHANGES AT THIS TIME TO VENT SETTINGS. VERSED INCREASED TO 5ML/HR AT THIS TIME. DR NEUMANN INFORMED OF CHANGES NOTED IN PT NO NEW ORDERS REC'D AT THIS TIEML.
--- NOTE | 2021-05-28 15:17 | NUR ---
PT SPO2 AT85-86%. INCREASED FIO2 TO 70%. SPO2 NOW AT 90%
--- NOTE | 2021-05-28 20:00 | NUR ---
RLEG THIGH AREA 19CM X 11CM RED AND WARM TO TOUCH.
--- NOTE | 2021-05-28 21:00 | NUR ---
ORAL CAVITY SUCTIONED, MOUTHCARE DONE. PT TURNED AND REPOSTIONED.
--- NOTE | 2021-05-29 02:00 | NUR ---
ORAL CAVITY SUCTIONED, MOUTHCARE DONE, PT TURNED AND REPOSTIONED
[2021-05-29 04:38] LABS: PLATELET COUNT 210 K/uL (142-355)
[2021-05-29 04:54] LABS: POTASSIUM 4.3 mmol/L (3.6-5.2)
--- NOTE | 2021-05-29 06:00 | NUR ---
EMY FEET FLOATING
--- NOTE | 2021-05-29 10:14 | NUR ---
0905-DECREASED PEEP TO 10 AND DECREASED FIO2 TO 65%. SPO2 AT 95-96% WILL CONTINUE TO MONITOR.
--- NOTE | 2021-05-29 11:34 | NUR ---
SPOKE WITH PT'S DAUGHTER KRISHNA UPDATE GIVEN AT THIS TIME. DAUGHTER HAD STATED THAT HER AND HER SISTER AND BROTHER AND THEY HAD DECIDED TO MAKE THEIR FATHER CHEMCIAL DNR. I EXPLAINED TO HER THAT I WOULD SPEAK WITH DR WILLIS AND ASK HER TO RETURN THEIR CALL.
--- NOTE | 2021-05-29 21:26 | NUR ---
PT'S FACED WIPED WITH WARM CLOTH, EYE MOISTURIZER APPLIED, MOUTH CARE COMPLETED, LIPS MOISTURIZED.
--- NOTE | 2021-05-29 21:44 | NUR ---
SHIFT ASSESSMENT COMPLETED. VENT SETTINGS FOLLOWED RATE 24, PS 10, FIO2 65%, PEEP 10. CURRENT DRIPS VECURONIUM 0.2 MCG/KG/MIN, D5W AT 75 ML/HR, VERSED 0.0648 MG/KG/H, FENTANYL 100 MCG/HR.
--- NOTE | 2021-05-29 21:51 | NUR ---
VECUNROMIUN 0.2 MCG/KG/MIN TRAIN OF FOUR: 4/4 TWITCHES
--- NOTE | 2021-05-29 23:00 | NUR ---
RESTING WITH EYES CLOSED, NO S/S OF PAIN OR DISTRESS NOTED, RESP RATE NONLABORED, REMAINS ON VENT, VITALS BEING MONITORED, RAILS UP, BED IN LOW POSITION, FEET AND HANDS ELEVATED ON PILLOWS TO HELP WITH EDEMA.
--- NOTE | 2021-05-30 00:15 | NUR ---
PT RESTING WITH EYES CLOSED, NO S/S OF ACUTE DISTRESS NOTED, RESP RATE NONLABORED, REMAINS ON VENT, VITALS BEING MONITORED. PT REPOSITIONED TO HIS SIDE, FEET AND HANDS ELEVATED ON PILLOWS. WILL MONITOR, RAILS UP, BED IN LOW POSITION.
--- NOTE | 2021-05-30 01:23 | NUR ---
RT AT THE BEDSIDE DOING TREATMENT.
--- NOTE | 2021-05-30 02:10 | NUR ---
RESTING WITH EYES CLOSED, NO S/S OF PAIN OR DISTRESS NOTED, RESP RATE NONLABORED, REMAINS ON VENT, NG TUBE INTACT TO L NARE, MOSELEY PATENT, CENTRAL LINE INTACT WITH DRIPS ONGOING, VITALS BEING MONITORED. REPOSITIONED TO R SIDE IN BED, FEET AND HANDS ELEVATED ON PILLOWS, WILL MONITOR, RAILS UP, BED IN LOW POSITION.
--- NOTE | 2021-05-30 04:00 | NUR ---
TRAIN OF FOUR 4/4 TWITCHES NOTED.
--- NOTE | 2021-05-30 04:45 | NUR ---
NO S/S OF ACUTE DISTRESS NOTED, VITALS BEING MONITORED, PT RESTING WITH EYES CLOSED, REPOSITIONED TO BACK WITH FEET AND HANDS ELEVATED ON PILLOWS. WILL MONITOR CLOSELY, RAILS UP, BE IN LOW POSITION.
[2021-05-30 06:32] LABS: POTASSIUM 4.5 mmol/L (3.6-5.2)
[2021-05-30 07:19] LABS: PLATELET COUNT 240 K/uL (142-355)
--- NOTE | 2021-05-30 08:15 | NUR ---
LABS AND UPDATE GIVNE TO DR WILLIS VIA PHONE AT THIS TIME. NO NEW ORDERS REC'D AT THIS TIME.
--- NOTE | 2021-05-30 08:30 | NUR ---
TRAIN OF 4 IS 2/4 AT 10mA AT THIS TIME. NO CHANGES MADE AT THIS TIME.
--- NOTE | 2021-05-30 09:48 | NUR ---
DEREAESD RR FROM 24 TO 22.
--- NOTE | 2021-05-30 13:28 | NUR ---
DECREASED FI02 FROM 65% TO 55% TO KEEP SATS GREATER THAN EQUAL TO 88%. HE IS SATING 89% AND HR. 88
--- NOTE | 2021-05-30 18:35 | NUR ---
WHILE REPOSITIONING PT NOTED THAT LEFT KNEE WAS RED AND WARM TO TOUCH. BOTH KNEES MEASURED AND MARKED AT THIS TIME. RT KNEE 17 3/4 AMD LEFT KNEE 18. DR WILLIS INFORMED. NO NEW ORDERS AT THIS TIME. NO OTHER PROBLEMS NOTED AT THIS TIME.
[2021-05-30 20:00] VITALS: TEMP 99
--- NOTE | 2021-05-30 20:00 | NUR ---
VECURONIUM INFUSING AT 0.2MCG/KG/MIN. TRAINS OF FOUR 4 TWITCHES NOTED VERY LIGHTLY AT 10ma.
--- NOTE | 2021-05-30 21:00 | NUR ---
PT IN BED SEDATED ON VENT WITH NO ACUTE DISTRESS NOTED, RESP RATE NONLABORED, VITALS BEING MONITORED, MOSELEY PATENT DRAINING TO BEDSIDE, NG TUBE INTACT TO L NARE, CENTRAL LINE INTACT TO R UPPER CHEST WITH NO PROBLEMS NOTED TO SITE, FEET AND HANDS ELEVATED ON PILLOWS TO HELP WITH EDEMA, REPOSITIONED TO BACK, HOB ELEVATED, WILL MONITOR CLOSELY, RAILS UP, BED IN LOW POSITION. MOUTH CARE PROVIDED AND LIPS MOISTURIZED.
[2021-05-31] VITALS: TEMP 99.3
--- NOTE | 2021-05-31 00:30 | NUR ---
TRAIN OF FOUR 4 OF 4 TWITCHES LIGHTLY NOTED AT 10ma. vecuronium continues at 0.2 mcg/kg/min.
--- NOTE | 2021-05-31 00:48 | NUR ---
00:00 - PT TURNED TO THE LEFT AT THIS TIME. TOLERATED WELL
--- NOTE | 2021-05-31 02:40 | NUR ---
RESTING WITH EYES CLOSED, NO S/S OF PAIN OR DISTRESS NOTED, ON VENT WITH VITALS BEING MONITORED, MOSELEY PATENT, CENTRAL LINE INTACT TO R UPPER CHEST WITH FENTANYL VERSED VECURONIUM CLINIMIX ONGOING, REPOSITIONED IN BED, FEET AND HANDS ELEVATED ON PILLOWS, HOB ELEVATED, NG TUBE INTACT TO L NARE. WILL MONITOR, RAILS UP, BED IN LOW POSITION.
[2021-05-31 04:00] VITALS: TEMP 99.1
--- NOTE | 2021-05-31 04:00 | NUR ---
ON VECURONIUM AT 0.2MCG/KG/MIN. TRAIN OF FOUR 4/4 TWITCHES OBSERVED(LIGHT/FAINT TWITCHES) AT 10ma.
--- NOTE | 2021-05-31 05:12 | NUR ---
BLOOD DRAWN FROM CENTRAL LINE BY SEWER HAND FOR MORNING LAB WORK. NO S/S OF ACUTE DISTRESS NOTED AT THIS TIME.
[2021-05-31 05:33] LABS: PLATELET COUNT 236 K/uL (142-355)
[2021-05-31 05:58] LABS: POTASSIUM 4.5 mmol/L (3.6-5.2)
--- NOTE | 2021-05-31 06:20 | NUR ---
NO ACUTE DISTRESS NOTED, VITALS BEING MONITORED, RESP RATE NONLABORED. REPOSITIONED PT TO R SIDE, FEET AND HANDS ELEVATED ON PILLOWS. WILL MONITOR CLOSELY.
--- NOTE | 2021-05-31 09:44 | NUR ---
FIO2 DECREASED TO 65% PER DR WILLIS. POX REMAINED 92%.
--- NOTE | 2021-05-31 20:55 | NUR ---
SHIFT ASSESSMENT COMPLETED. ORAL CARE DONE. EYE CARE DONE. BILATERAL KNEES MEASURED AND WERE NOTED AT 17 INCHES (R); 17.5 INCHES (L). PATIENTS LOWER EXTREMITIES ELEVATED ON PILLOWS.
[2021-05-31 21:00] VITALS: TEMP 99
--- NOTE | 2021-05-31 22:43 | NUR ---
PATIENT REPOSITONED UP IN BED AND ON TO HIS RIGHT SIDE. PATIENT SUCTIONED AND SMALL AMOUNT OF LIGHT GREEN SECRETIONS NOTED. PATIENT IN LINE SUCTIONED AND NO SECRETIONS WERE NOTED ON RETURN. PILLOWS PLACED ON HIS BACK FOR SUPPORT. PATIENT PLACED IN HIGH FOWLERS POSITION WILL CONTINUE TO MONITOR.
[2021-06-01 01:00] VITALS: TEMP 98.6
--- NOTE | 2021-06-01 01:24 | NUR ---
PATIENT NOTED WITH O2 AT 88% WHILE ON HIS RIGHT SIDE. PATIENT REPOSITIONED ON TO HIS LEFT SIDE AND 02 SATS INCREASED TO 92%. PATIENT IS TOLERATING LEFT SIDE BETTER.
--- NOTE | 2021-06-01 02:17 | NUR ---
PATIENT WAS TURNED AND REPOSITONED. MOUTH CARE AND LIP LUBRACATION COMPLETE ARMS ELIVATED AND HEELS FLOATED
[2021-06-01 03:37] LABS: PLATELET COUNT 240 K/uL (142-355)
[2021-06-01 04:11] LABS: POTASSIUM 4.9 mmol/L (3.6-5.2)
--- NOTE | 2021-06-01 04:54 | NUR ---
PATIENT TEMP IS 98.3
--- NOTE | 2021-06-01 07:18 | NUR ---
0648 PT HR PER MONITOR IS 46 BP IS 59/41 ATROPINE GIVEN, RT BAGGING, DR MURRAY NOTIFIED. 0650 HR 64 BP 60/[address] OKEEFE AT BEDSIDE 0654 LEVOPHED DRIP STARTED 0656 ATROPINE 1 AMP GIVEN IV HR 52 0657 NOT ABLE TO PALPATE PULSE ASYSTOLE PER SERVICE CASHIER. 0658 1 AMP EPI GIVEN IV 0659 NOT ABLE TO PALPATE PULSE ASYSTOLE ON SERVICE CASHIER. 0702 APICAL PULSE NOT HEARD UPON ASCULATION. ORDERED FOR ALL LIFE SAVING MEASURES TO CEASE. AND PRONOUNCED PT . 0704 POST MORTEM CARE PROVIDED. 0710 [facility] NOTIFIED AND REFUSED PT TISSUES AND ORGANS RELATED TO DIAGNOSIS AND AGE. WITH REF # [id number] FAYE (SON) [phone] CALLED LINE WAS BUSY DR MURRAY STATED HE WILL TRY TO CONTACT FAMILY AGAIN
--- NOTE | 2021-06-01 08:07 | NUR ---
LATE ENTRY 06/01/21 0548- PATIENT NOTED WITH SPO2 AT 78%. PATIENT REPOSITIONED AND SUCTIONED WITH NO SPUTUM NOTED. PATIENT REMAINS AT 78%. 0600- ABG SHOWED ATRIAL 02 OF 78% WHICH CONFIRMED MONITOR. PATIENT CURRENT RATE 22 AND WAS INCREASED 28 WITH PEEP AT 10 AND INCREASED TO 15. PATIENT 02 SATS INCREASED TO 90%.
== END 2021-06-01 19:02 | disposition expired | DRG 302 ==
LOC: ED 14:57 → MED/SURG 16:23 → PCU 05-17 19:04
PROVIDERS: Family Medicine; Hospitalist; Internal Medicine Endocrinology, Diabetes & Metabolism; ADMIT Internal Medicine; ATTEND Internal Medicine
PROC: 5A1955Z Respiratory Ventilation, Greater than 96 Consecutive Hours (ICD-10-PCS; principal; 2021-05-18)
PROC: 0BH17EZ Insertion of Endotracheal Airway into Trachea, Via Natural or Artificial Opening (ICD-10-PCS; 2021-05-18)
PROC: 05H533Z Insertion of Infusion Device into Right Subclavian Vein, Percutaneous Approach (ICD-10-PCS; 2021-05-18)
PROC: B546ZZA Ultrasonography of Right Subclavian Vein, Guidance (ICD-10-PCS; 2021-05-18)
DX: I25.10 Atherosclerotic heart disease of native coronary artery without angina pectoris (principal); U07.1 COVID-19; J12.82 Pneumonia due to coronavirus disease 2019; J96.01 Acute respiratory failure with hypoxia; E87.2 Acidosis; N17.8 Other acute kidney failure; J44.0 Chronic obstructive pulmonary disease with (acute) lower respiratory infection; I10 Essential (primary) hypertension; E66.8 Other obesity; Z68.34 Body mass index [BMI] 34.0-34.9, adult
CPT/HCPCS: 36415; 36591; 36600; 80048; 80053; 80061; 81000; 82550; 82553; 82805; 83605; 83735; 83880; 84100; 84484; 84550; 85007; 85027; 85610; 85730; 87040; 87077; 87185; 87186; 87205; 87635; 93005; 94002; 94003; 94640; 94660; 94664; 94760; 96365; 96375; 99284; C1768; J0132; J0330; J0360; J0456; J0696; J1100; J1650; J1815; J1885; J1940; J2060; J2185; J2250; J2405; J2543; J3020; J3490; P9047; U0003